=== PATIENT | female | born 1995 | race Asian ===

== ENCOUNTER 2017-09-05 04:57 | Emergency (ER) | payer OTHER ==
[~2017-09-05] VITALS: Ht 149.9 cm; Wt 48.1 kg
[2017-09-05 05:09] VITALS: BP_SYST 118
[2017-09-05 06:17] VITALS: BP_SYST 116
== END 2017-09-05 06:17 ==
LOC: SED 04:57
DX: Z02.89 Encounter for other administrative examinations (principal); V89.2XXA Person injured in unspecified motor-vehicle accident, traffic, initial encounter; Y93.89 Activity, other specified; Y92.89 Other specified places as the place of occurrence of the external cause; Y99.8 Other external cause status